=== PATIENT | female | born 1940 | race Caucasian/White ===

== ENCOUNTER 2022-01-04 05:46 | Day surgery (SDC) | payer MEDICARE, OTHER ==
[2021-12-27 15:19] LABS: BASOPHILS # (AUTO) 0.1 X10'3 (0-0.2); BASOPHILS % (AUTO) 0.7 % (0-1); EOSINOPHILS # (AUTO) 0.3 X10'3 (0-0.9); EOSINOPHILS % (AUTO) 3.2 % (0-6); LYMPHOCYTES # (AUTO) 2.9 X10'3 (1.1-4.8); LYMPHOCYTES % (AUTO) 34.7 % (21-51); MEAN CORPUSCULAR HEMOGLOBIN 31.3 PG (27.0-31.0); MEAN CORPUSCULAR HGB CONC 34.2 g/dL (33.0-36.5); MEAN CORPUSCULAR VOLUME 91.3 FL (78-98); MEAN PLATELET VOLUME 8.7 FL (7.4-10.4); MONOCYTES # (AUTO) 0.7 X10'3 (0-0.9); MONOCYTES % (AUTO) 8.5 % (2-12); NEUTROPHILS # (AUTO) 4.4 X10'3 (1.8-7.7); NEUTROPHILS % (AUTO) 52.9 % (42-75); PRE OP HEMATOCRIT 39.5 % (35.0-45.0); PRE OP HEMOGLOBIN 13.5 g/dL (12.0-16.0); PRE OP PLATELET COUNT 220 X10'3 (140-440); RED BLOOD COUNT 4.33 X10'6 (4.20-5.60); RED CELL DISTRIBUTION WIDTH 12.7 % (11.5-14.5)
[2021-12-27 15:35] LABS: ALBUMIN 3.8 G/DL (3.4-5.0); ALBUMIN/GLOBULIN RATIO 1.3 (1.1-1.5); ALKALINE PHOSPHATASE 51 IU/L (46-116); BLOOD UREA NITROGEN 21 MG/DL (7-18); BUN/CREATININE RATIO 21.6 (6.6-38.0); CALCIUM 9.1 MG/DL (8.5-10.1); CHLORIDE 100 MMOL/L (99-107); CREATININE 0.97 MG/DL (0.40-0.90); PRE OP ALT 21 U/L (30-65); PRE OP ANION GAP 8 (8-16); PRE OP AST 21 U/L (10-37); PRE OP BILIRUB, TOTAL 0.3 MG/DL (0.0-1.0); PRE OP GLUCOSE 101 MG/DL (70-104); PRE OP POTASSIUM 3.8 MMOL/L (3.4-5.1); PRE OP SODIUM 134 MMOL/L (135-145); TOTAL CARBON DIOXIDE 26.5 MMOL/L (24-32); TOTAL PROTEIN 6.8 G/DL (6.4-8.2); eGFR 55 ML/MIN
[~2022-01-04] VITALS: Ht 152.4 cm; Wt 50.3 kg
[~2022-01-04 05:46] MED LIST: ALBU18HF2 INH; ATOR40TA PO; CHLO12TA2 PO; DOCUMENT DATE & TIME OF BETA-BLOCKER PO ONE; LISI5TAB22 PO; METO-539 PO; NITR0.4T48 SL; TRIA1CAP6 PO; ceFAZolin inj. 2,000 MG in dextrose 5%-water 100 ML IV ONE; famotidine 20mg tablet PO ONE; ringers solution, lacted 1,000 ML IV SCH
[2022-01-04 05:55] VITALS: BP 136/76
[2022-01-04] MEDS ORDERED: BUPIVAcaine/PF 2.5 mg/ml (0.25%) 30ml vial ONE (06:41)
[2022-01-04] MEDS ORDERED: LIDOcaine 0.5% (5mg/ml) 50ml vial ONE (07:28)
[2022-01-04] MEDS ORDERED: fentaNYL/PF 50MCG/1 ML 2ML syringe ONE (07:31)
[2022-01-04] MEDS ORDERED: midazolam 1 mg/ML 2ml injection ONE (07:32)
[2022-01-04 08:08] VITALS: BP 136/74
--- NOTE | 2022-01-04 08:08 | NUR ---
Received from OR via [facility], accompanied by Anesthesiologist DR SHEFFIELD and report given by Anesthesiolgist. PT PRESETRNS WITH 20G LEFT WRIST, DRESSING ON RIGHT HAND/WRIST CDI, VSS. Addendum: 01/04/22 at 0821 by Jennifer Boudreaux RN, RN Amended: Links added.
[2022-01-04 08:20] VITALS: BP 134/72
[2022-01-04 08:30] VITALS: BP 136/66
[2022-01-04 08:40] VITALS: BP 132/65
[2022-01-04 08:58] VITALS: BP 135/72
--- NOTE | 2022-01-04 08:58 | NUR ---
PT HAS MET ALL DC CRITERIA, IN DC'D WITH CATHETER INTACT, DC WALTER REVIEWED WIHT PT, PT HAS NO FURTHER QUESTIONS AT SI TIME. PT WHEELED OUT OF HOSPITAL IN WHEELHAIR TO DAUGHTER WHO DROVER HER HOME. Addendum: 01/04/22 at 0914 by Jennifer Boudreaux RN, RN Amended: Links added.
== END 2022-01-04 08:58 | disposition home or self-care (01) ==
LOC: PAS 05:46
PROVIDERS: ATTEND Orthopaedic Surgery Hand Surgery
DX: G56.01 Carpal tunnel syndrome, right upper limb (principal); I10 Essential (primary) hypertension; E78.00 Pure hypercholesterolemia, unspecified; M85.80 Other specified disorders of bone density and structure, unspecified site; M19.90 Unspecified osteoarthritis, unspecified site; F17.210 Nicotine dependence, cigarettes, uncomplicated; M81.0 Age-related osteoporosis without current pathological fracture; Z95.0 Presence of cardiac pacemaker; Z98.890 Other specified postprocedural states; Z79.899 Other long term (current) drug therapy; Z20.822 Contact with and (suspected) exposure to COVID-19
CPT/HCPCS: 36415; 64721; 71046; 80053; 82948; 85025; 93005; A6222; J0690; J2250; J3010; J3490; J7030; J7060; J7120; U0003; U0005; Z7506; Z7512; A4215; A6449